=== PATIENT | female | born 1950 | race Caucasian/White ===

== ENCOUNTER 2019-04-15 08:03 | Outpatient (CLI) | payer MEDICARE, MEDICAID, SELFPAY ==
--- NOTE | 2019-04-15 08:30 | CT_ITS ---
WS: [id number] CT LUMBAR SPINE, noncontrast. HISTORY: Lumbar fusion TECHNIQUE: Contiguous 2.5 mm axial imaging are performed. Sagittal and coronal reformats are submitte d and reviewed. All CT scans at [facility] use at least one of these dose optimization te chniques: automated exposure control; mA and/or kV adjustment per patient size (includes targeted exa ms where dose is matched to clinical indication); or iterative reconstruction. IV contrast: None DLP: 1904.81 mGycm COMPARISON: 01/23/2019 Prior posterior lumbar fusion at L2-3. Interbody spacers at L2-3 and L3-4. Large laminectomy defects extending from L2 to L4. Prior vertebroplasty at L1. L1 25% compression fracture is unchanged. No new fracture. Slight increase in the lower lumbar lordosis and kyphosis at the thoracolumbar junction. T12-L1: Mild osteophytic ridging without stenosis. L1-2: Mild annular disc bulging and osteophytic ridging. Encroachment upon the ventral thecal sac and bilateral facet arthropathy. Mild central, subarticular recess and foraminal stenosis. L2-3: Mild annular disc bulging and facet arthropathy and osteophytes. No significant stenosis. L3-4: Large posterior laminectomy defect. Thecal sac centrally is widely patent. No significant steno sis. Small osteophytes extend toward the foramen. L4-5: Diffuse annular disc bulging with mild osteophytic ridging and facet arthropathy. Disc osteophy te encroachment into the subarticular recesses. Mild encroachment RIGHT foramen. Large posterior lami nectomy defects. Mild bilateral subarticular recess stenosis. L5-S1: Central and LEFT paracentral disc protrusion with mild encroachment upon the LEFT S1 nerve riaz t with no stenosis. Mild atherosclerosis abdominal aorta. CT/CT lumbar spine wo con* [id number] IMPRESSION: 1. Posterior fusion at L2-3 with interbody spacers at L2-3 and L3-4. Large pos terior laminectomy defects from L2 to L4. 2. L1 prior vertebroplasty secondary to 25% compression fracture with no philippe e. 3. Central/LEFT paracentral disc protrusion at L5-S1 with mild encroachment up on the LEFT S1 nerve root. 4. Bilateral subarticular recess narrowing at L4-[address] foraminal st enosis. 5. Mild central, subarticular recess and foraminal stenosis at L1-2.
== END 2019-04-15 08:04 | disposition home or self-care (01) ==
LOC: RADWPI 08:08
PROVIDERS: PCP Student in an Organized Health Care Education/Training Program; Visit Provider Licensed Practical Nurse
DX: Z98.1 Arthrodesis status (principal); M51.27 Other intervertebral disc displacement, lumbosacral region; M48.061 Spinal stenosis, lumbar region without neurogenic claudication
CPT/HCPCS: 72131